=== PATIENT | female | born 1945 | race Caucasian/White ===

== ENCOUNTER 2018-05-07 06:52 | Inpatient (IN) | payer BC, MEDICARE ==
[~2018-05-07] VITALS: Ht 154.9 cm; Wt 57.2 kg
[2018-05-07] VITALS (8 sets, daily range): BP systolic 95–107; BP diastolic 60–65
[~2018-05-07 06:52] MED LIST: BACITRACIN 50000 UNITS/VIAL ONE
[2018-05-07] MEDS ORDERED: CEFAZOLIN SODIUM/DEXTROSE,ISO 50 ML IV ONE (07:39)
[2018-05-07] MEDS ORDERED: CELECOXIB 100 MG CAPSULE ONE (07:39)
[2018-05-07] MEDS ORDERED: oxyCODONE HCL SR 10MG TAB.SR.12H PO ONE (07:39)
[2018-05-07] MEDS ORDERED: TRANEXAMIC ACID 3,000 MG in SODIUM CHLORIDE IRRIG SOLUTION 70 ML IR ONE (10:00)
[2018-05-07] MEDS ORDERED: HYDROMORPHONE INJ 2 MG/ML DISP.SYRIN ONE (10:54)
--- NOTE | 2018-05-07 11:40 | NUR ---
pt. to rm. 322-2 from rec. room.rt. hip drsg dry and intact except for scant spot of blood on surgical dressing.iv infusing slowly.vs stable.spouse at bedside.food ordered.
--- NOTE | 2018-05-07 12:00 | NUR ---
pt. awake,alert,rn to follow up on pt,s meds.pt. resting,no c/of pain,resp. even and unlabored.
--- NOTE | 2018-05-07 12:10 | NUR ---
dr. johnson notified of pt's presence.will come up and write orders.
[2018-05-07] MEDS ORDERED: AMBIEN 5 MG TABLET PO PRN (13:00)
[2018-05-07] MEDS ORDERED: DULCOLAX 10 MG/SUPP.RECT RC PRN (13:00)
[2018-05-07] MEDS ORDERED: IV LR 1000 ML 1,000 ML IV PRN (13:00)
[2018-05-07] MEDS ORDERED: SENOKOT 8.6 MG TABLET PO PRN (13:00)
[2018-05-07] MEDS ORDERED: COLACE 100 MG CAPSULE PO PRN (13:00)
[2018-05-07] MEDS ORDERED: MORPHINE SULFATE INJ 4 MG/ML DISP.SYRIN IV PRN (13:00)
[2018-05-07] MEDS ORDERED: TYLENOL 650 MG TABLET PO PRN (13:00)
[2018-05-07] MEDS ORDERED: ZOFRAN 4mg/2ML IV PRN (13:00)
[2018-05-07] MEDS ORDERED: HYDROMORPHONE INJ 2 MG/ML DISP.SYRIN IV PRN (13:00)
[2018-05-07] MEDS ORDERED: HYDROCODONE/APAP 5/325MG 1 EACH TABLET PO PRN ×2 (13:00→13:30)
[2018-05-07] MEDS ORDERED: MAG HYDROX/AL HYDROX/SIMETH 30 ML UDC PO PRN (13:30)
[2018-05-07] MEDS ORDERED: MAGNESIUM HYDROXIDE 30 ML UDC PO PRN (13:30)
[2018-05-07] MEDS ORDERED: ZOLPIDEM TARTRATE 5 MG TABLET PO PRN (13:30)
[2018-05-07] MEDS ORDERED: ONDANSETRON HCL/PF 4 MG/2 ML VIAL IVP PRN (13:30)
[2018-05-07] MEDS ORDERED: Z GUARD REMEDY 2 OZ OINT TP PRN (13:30)
[2018-05-07] MEDS ORDERED: ACETAMINOPHEN 325 MG TABLET PO PRN (13:30)
--- NOTE | 2018-05-07 15:00 | NUR ---
MS RN NOTES RECEIVED REPORT FROM BRIDGER STUBBS. PATIENT RECEIVED RESTING INSIDE ROOM. AWAKE, ALERT AND ORIENTED. VERBALLY RESPONSIVE AND RESPONDS TO VERBAL AND TACTILE STIMULI. BREATHING EVEN AND UNLABORED. NO CHANGES IN LOC NOTED. PATIENT AFEBRILE, SKIN DRY AND WARM TO TOUCH. PATIENT ADMITTED TO UNIT UNDER CARE OF DR. SMITH. PATIENT HAD RIGHT HIP REMOVAL AND RIGHT TOTAL HIP ARTHROPLASTY. PATIENT SEEN AND EXAMINED BY PT. IV INTACT AND PATENT, NO SWELLING OR BLEEDING NOTED ON SITE. WILL CONTINUE TO MONITOR. BED LOCKED AND IN LOW POSITION. BILATERAL UPPER SIDE RAILS UP AND LOCKED. CALL LIGHT WITHIN EASY REACH
--- NOTE | 2018-05-07 15:30 | NUR ---
pt. endorsed to magdaleno hyde.
[2018-05-07] MEDS ORDERED: MIDRIN PO (16:21)
[2018-05-07] MEDS: ANCEF 1 GM/50 ML D5W IV SCH ×2 (17:00)
[2018-05-07] MEDS: RIVAROXABAN 10 MG TABLET PO SCH (17:04)
--- NOTE | 2018-05-07 18:47 | NUR ---
MS RN NOTES PATIENT RESTING INSIDE ROOM. AWAKE, ALERT AND ORIENTED X 4, VERBALLY RESPONSIVE AND RESPONDS TO VERBAL AND TACTILE STIMULI. BREATHING EVEN AND UNLABORED, NO SOB OR ACUTE DISTRESS NOTED. PATIENT DENIES ANY PAIN OR DISCOMFORT. IV INTACT OR PATENT, NO SWELLING OR BLEEDING NOTED ON SITE. FARR CATHETER IN PLACE WITH YELLOW OUTPUT NOTED ON COLLECTING BAG. WILL ENDORSE TO INCOMING SHIFT FOR GERONIMO. BED LOCKED AND IN LOW POSITION. BILATERAL UPPER SIDE RAILS UP AND LOCKED. CALL LIGHT WITHIN EASY REACH
[2018-05-07] MEDS ORDERED: ONDANSETRON HCL/PF 4 MG/2 ML VIAL IV PRN (19:30)
[2018-05-07] MEDS ORDERED: CLONIDINE HCL 0.1 MG TABLET PO PRN (19:30)
[2018-05-07] MEDS ORDERED: CARISOPRODOL 350 MG TABLET PO PRN (19:30)
[2018-05-07] MEDS ORDERED: diphenhydrAMINE HCL 25 MG CAPSULE PO PRN (19:30)
--- NOTE | 2018-05-07 19:40 | NUR ---
MS RN NOTES RECEIVED PT ON BED. ON ROOM AIR SATURATING WELL. PT A/OX4 . PT ON FARR CATH DRAINING WELL. IV ACCESS RFA #20 LR @75CC/HR RUNNING WELL. IV ACCESS PATENT AND INTACT. HEAD OF BED ELEVATED. SIDE RAILS UP. CALL LIGHT WITHIN REACH. BED ALARM ON. WILL CONTINUE TO MONITOR PT CLOSELY
[2018-05-07] MEDS: DRONABINOL (2.5 MG) 2.5 MG CAPSULE PO SCH (20:10)
[2018-05-07] MEDS: FAMOTIDINE (20 MG) 20 MG TABLET PO SCH (20:10)
[2018-05-07] MEDS: TOPIRAMATE 25 MG TABLET PO SCH (21:27)
[2018-05-07] MEDS: HYDROCODONE/APAP 10/325MG 1 EA TABLET PO PRN (22:54)
[2018-05-08] MEDS: ANCEF 1 GM/50 ML D5W IV SCH ×2 (00:17)
[2018-05-08] MEDS: MORPHINE SULFATE INJ 4 MG/ML DISP.SYRIN IM PRN (04:36)
--- NOTE | 2018-05-08 06:23 | NUR ---
MS RN NOTES NO ACUTE CHANGES NOTED DURING THE SHIFT. PROVIDED COMFORT AND SAFETY. DUE MEDS GIVEN. HEAD OF BED ELEVATED. SIDE RAILS UP. CALL LIGHT IS PLACED WITHIN REACH. IV ACCESS PATENT AND INTACT. FARR CATHETER DRAINING WELL. WILL ENDORSE TO THE AM NURSE FOR CONTINUITY OF CARE.
--- NOTE | 2018-05-08 07:15 | NUR ---
RN INITIAL NOTES: PATIENT RESTING IN BED. NONLABORED BREATHING NOTED ON ROOM AIR. DENYING PAIN AT THE MOMENT. IV SITE ON RFA PATENT AND INTACT. BED IN LOWEST LOCKED POSITION. CALL LIGHT WITHIN REACH. WILL CONTINUE TO MONITOR
[2018-05-08 07:34] LABS: BASOPHILS % (AUTO) 0.5 % (0.0-2.0); EOSINOPHILS % (AUTO) 1.3 % (0.0-6.0); HEMATOCRIT 29 % (33-45); HEMOGLOBIN 9.8 g/dL (11.5-14.8); LYMPHOCYTES # (AUTO) 1.2 /CMM (0.8-4.8); MEAN CORPUSCULAR HEMOGLOBIN 30 PG (26.0-33.0); MEAN CORPUSCULAR HGB CONC 33 g/dl (31.0-36.0); MEAN CORPUSCULAR VOLUME 91 fL (82-100); MONOCYTES # (AUTO) 0.4 /CMM (0.1-1.30); MONOCYTES % (AUTO) 8.8 % (2.0-12.0); NEUTROPHILS # (AUTO) 2.7 /CMM (1.8-8.9); NEUTROPHILS % (AUTO) 61.4 % (43.0-81.0); PLATELET COUNT (AUTO) 200 /CMM (150-450); RDW COEFFICIENT OF VARIATION 13.6 (11.5-15.0); RED BLOOD CELL COUNT(AUTO) 3.24 MIL/uL (4.0-5.2); WHITE BLOOD COUNT (AUTO) 4.4 K/uL (4.3-11.0)
[2018-05-08 07:50] LABS: CHOLESTEROL 113 mg/dL (<200); HDL CHOLESTEROL 54 mg/dL (40-60); LDL 46 mg/dL (0-99); TRIGLYCERIDES 79 mg/dL (30-150)
[2018-05-08 07:51] LABS: CALCIUM, SERUM 7.7 mg/dL (8.5-10.1); CARBON DIOXIDE 25 mmol/L (21-32); CHLORIDE 108 mmol/L (98-107); GLUCOSE 104 mg/dL (74-106); MAGNESIUM 1.9 mg/dL (1.8-2.4); PHOSPHORUS 3.2 mg/dL (2.5-4.9); POTASSIUM 3.7 mmol/L (3.5-5.1); SODIUM SERUM 139 mmol/L (136-145); UREA NITROGEN, BLOOD 18 mg/dL (7-18)
[2018-05-08 08:00] VITALS: BP_SYST 108; BP_SYST 167; BP_DIAS 66; BP_DIAS 92
--- NOTE | 2018-05-08 08:04 | NUR ---
INCENTIVE SPIROMETER PATIENT PROVIDED WITH IS, BENEFITS AND RISKS EXPLAINED. EDUCATED HOW AND HOW OFTEN TO USE IT. PATIENT VERBALIZED UNDERSTANDING
[2018-05-08] MEDS: HYDROCODONE/APAP 10/325MG 1 EA TABLET PO PRN ×2 (08:07→14:11)
[2018-05-08] MEDS: FAMOTIDINE (20 MG) 20 MG TABLET PO SCH ×2 (08:29→21:05)
[2018-05-08] MEDS: DRONABINOL (2.5 MG) 2.5 MG CAPSULE PO SCH ×2 (09:17→21:05)
[2018-05-08 09:18] VITALS: BP 102/60
--- NOTE | 2018-05-08 11:17 | NUR ---
PER ADAM BRITTON -- DRESSING TO BE CHANGED BY PA OR BY NURSE
--- NOTE | 2018-05-08 11:46 | NUR ---
FARR CATHETER REMOVED PER MD ORDERS. NO SIGNS OF BLEEDING OR TRAUMA NOTED. WILL CONTINUE TO MONITOR PATIENT'S OUTPUT
[2018-05-08 12:00] VITALS: BP_SYST 100; BP_SYST 120; BP_DIAS 60; BP_DIAS 70
[2018-05-08 16:00] VITALS: BP 96/64
--- NOTE | 2018-05-08 17:00 | NUR ---
PATIENT ABLE TO VOID YELLOW CLEAR URINE AFTER FARR CATHETER REMOVAL. NO SIGNS OF RETENTION NOTED
[2018-05-08 17:35] VITALS: BP 105/68
[2018-05-08] MEDS: DOCUSATE SODIUM 100 MG CAPSULE PO SCH (17:43)
[2018-05-08] MEDS: RIVAROXABAN 10 MG TABLET PO SCH (17:43)
--- NOTE | 2018-05-08 18:37 | NUR ---
Met with patient, she is alert and very pleasant.She lives with her spouse in a single level home in [place]. She was ambulatory and independent with adl's prior to admission. Has no DME or homehealth reported. POD#1 S/P Right GERI, was evaluated by rehab, patient is able to walk 100ft CGA. Discussed dc planning options including ARU or SNF. Patient dont want to go to ARU or SNF, she prefer to return home with home PT and FWW. Due to patient [employer] insurance - [phone]. Her spouse will provide ride home once discharge. Addendum: 05/08/18 at 1839 by DIANE MARTINEZ RN Amended: Links added.
--- NOTE | 2018-05-08 18:54 | NUR ---
RN CLOSING NOTES PATIENT RESTING IN BED. NONLABORED BREATHING NOTED ON ROOM AIR. DENYING PAIN AT THE MOMENT. IV SITE ON RFA PATENT AND INTACT. BED IN LOWEST LOCKED POSITION. CALL LIGHT WITHIN REACH. FALL PRECAUTIONS IMPLEMENTED. WILL ENDORSE TO NEXT SHIFT
--- NOTE | 2018-05-08 19:00 | NUR ---
MS RN OPENING NOTE RECEIVE PATIENT AWAKE IN BED, A/O X4,NO SOB OR DISTRESS NOTED, CALL LIGHT WITHIN REACH. SAFETY MEASURES IMPLEMENTED. WILL CONTINUE TO MONITOR THROUGHOUT SHIFT.
[2018-05-08 20:00] VITALS: BP 120/64
[2018-05-08] MEDS: TOPIRAMATE 25 MG TABLET PO SCH (21:05)
--- NOTE | 2018-05-09 06:20 | NUR ---
MS RN CLOSING NOTES PT COMFORTABLY ASLEEP AND EASILY AWAKEN, STABLE CONDITION. RESPIRATION EVEN AND UNLABORED. 02 SAT 98%R.A, KEPT CLEAN AND DRY AND COMFORTABLE, ALL NURSING CARE RENDERED. NEEDS ATTENDED AND ANTICIPATED,NOT IN DISTRESS, NO FACIAL GRIMACING NOTED. ON LOW BED AT ALL TIMES TO ENSURE SAFETY. SAFE HAZARD FREE ENVIRONMENT PROVIDED. CALL LIGHT WITHIN EASY TO REACH. WILL ENDORSE NEXT SHIFT CONTINUITY OF CARE.
[2018-05-09] MEDS: DRONABINOL (2.5 MG) 2.5 MG CAPSULE PO SCH (07:12)
--- NOTE | 2018-05-09 07:25 | NUR ---
RN NOTES PATIENT A/OX4, BREATHING EVEN AND UNLABORED, NO DISTRESS NOTED, C/O BACK PAIN, ENCOURAGED PATIENT TO TURN SIDE TO SIDE WHILE IN BED, PATIENT IS INDEPENDENT WITH BED MOBILITY. PATIENT STATED SHE COULD NOT SLEEP LAST NIGHT BECAUSE SHE HAS TO KEEP GOING TO THE RESTROOM, THEREFORE SHE FEELS TIRED. NEEDS ATTENDED, CALL LIGHT WITHIN REACH, WILL CONTINUE TO MONITOR.
[2018-05-09 08:00] VITALS: BP 108/68
[2018-05-09 08:15] LABS: BASOPHILS % (AUTO) 0.3 % (0.0-2.0); EOSINOPHILS % (AUTO) 1.2 % (0.0-6.0); HEMATOCRIT 33 % (33-45); HEMOGLOBIN 10.9 g/dL (11.5-14.8); LYMPHOCYTES # (AUTO) 0.9 /CMM (0.8-4.8); MEAN CORPUSCULAR HEMOGLOBIN 30 PG (26.0-33.0); MEAN CORPUSCULAR HGB CONC 34 g/dl (31.0-36.0); MEAN CORPUSCULAR VOLUME 90 fL (82-100); MONOCYTES # (AUTO) 0.5 /CMM (0.1-1.30); MONOCYTES % (AUTO) 7.4 % (2.0-12.0); NEUTROPHILS # (AUTO) 5.4 /CMM (1.8-8.9); NEUTROPHILS % (AUTO) 78.1 % (43.0-81.0); PLATELET COUNT (AUTO) 228 /CMM (150-450); RDW COEFFICIENT OF VARIATION 13.4 (11.5-15.0); RED BLOOD CELL COUNT(AUTO) 3.61 MIL/uL (4.0-5.2); WHITE BLOOD COUNT (AUTO) 6.9 K/uL (4.3-11.0)
[2018-05-09] MEDS: DOCUSATE SODIUM 100 MG CAPSULE PO SCH (08:38)
[2018-05-09] MEDS: FAMOTIDINE (20 MG) 20 MG TABLET PO SCH (08:38)
[2018-05-09] MEDS: MORPHINE SULFATE INJ 4 MG/ML DISP.SYRIN IM PRN (08:39)
[2018-05-09 08:45] LABS: CALCIUM, SERUM 8.1 mg/dL (8.5-10.1); CARBON DIOXIDE 23 mmol/L (21-32); CHLORIDE 108 mmol/L (98-107); CREATININE 0.9 mg/dL (0.6-1.3); GLUCOSE 122 mg/dL (74-106); POTASSIUM 3.4 mmol/L (3.5-5.1); SODIUM SERUM 141 mmol/L (136-145); UREA NITROGEN, BLOOD 13 mg/dL (7-18)
[2018-05-09] MEDS ORDERED: POTASSIUM CHLORIDE 20 MEQ TAB.PRT.SR PO ONE (10:00)
--- NOTE | 2018-05-09 12:56 | NUR ---
RN NOTES WALKER PROVIDED, PATIENT IS IN NO DISTRESS. DENIES PAIN OR DISCOMFORT AT THIS TIME. NEEDS ATTENDED AND MET. PATIENT HAD A BM X1.
--- NOTE | 2018-05-09 13:25 | NUR ---
CAGE MAKER NOTE PATIENT A/OX4, RECEIVED DISCHARGE INSTRUCTIONS AND VERBALIZED UNDERSTANDING. KASH MEDINA CAME AND CHANGED THE DRESSING ON RIGHT HIP INCISION, NO S/SX OF INFECTION NOTED, PIV REMOVED AND COVERED WITH GAUZE AND TAPE, PRESCRIPTION GIVEN TO THE PATIENT, BELONGINGS RECONCILED AND COMPLETE, WALKER PROVIDED. SKIN ASSESSMENT COMPLETED, CLEAR AND INTACT. NEEDS ATTENDED, LEFT THE FACILITY PATIENT PICKED UP BY A FRIEND, IN NO DISTRESS.
== END 2018-05-09 13:15 | disposition home health service (06) | DRG 468 ==
LOC: DS 06:52 → MED 09:55
PROVIDERS: ADMIT Specialist; ATTEND Family Medicine
PROC: 0SR90JZ Replacement of Right Hip Joint with Synthetic Substitute, Open Approach (ICD-10-PCS; principal; 2018-05-07 12:30)
PROC: 0SP90JZ Removal of Synthetic Substitute from Right Hip Joint, Open Approach (ICD-10-PCS; principal; 2018-05-07 12:30)
DX: T84.84XA Pain due to internal orthopedic prosthetic devices, implants and grafts, initial encounter (principal); M16.11 Unilateral primary osteoarthritis, right hip; Z98.890 Other specified postprocedural states; Y92.009 Unspecified place in unspecified non-institutional (private) residence as the place of occurrence of the external cause; Y83.1 Surgical operation with implant of artificial internal device as the cause of abnormal reaction of the patient, or of later complication, without mention of misadventure at the time of the procedure; G43.909 Migraine, unspecified, not intractable, without status migrainosus; G25.81 Restless legs syndrome; G47.00 Insomnia, unspecified
CPT/HCPCS: 36415; 80048-TC; 80061-TC; 83735-TC; 84100-TC; 85025-TC; 86850-TC; 86921-TC; 87081-TC; 88300-TC; 88305-TC; 88311-TC; 97110-TC; 97116-TC; 97530-TC; A4217; A4606; J0690; J1170; J2270; J7060; J7120; Q0167